=== PATIENT | female | born 1965 | race Caucasian/White ===

== ENCOUNTER 2021-01-21 21:33 | Emergency (ER) | payer MEDICARE, SELFPAY ==
--- NOTE | ~2021-01-21 | XR_ITS ---
XR chest 2V DATE: 01/21/2021 21:56 INDICATION: Shortness of breath TECHNIQUE: PA and lateral views COMPARISON: None FINDINGS: Normal heart size. No hilar or mediastinal enlargement. Bilateral hyperinflation with flattening the diaphragm, consistent with COPD. No pulmonary infiltrate or consolidation, pleural effusion or pulmonary vascular congestion or pneumothorax. Anterior cervical spine surgical fusion. IMPRESSION: COPD Reviewed, dictated and finalized at location A. IMPRESSION: COPD
--- NOTE | 2021-01-21 21:39 | ECG_ITS ---
Measurements Intervals [place] Rate: 110 P: 81 [place]: 154 QRS: 78 QRSD: 98 T: 83 QT: 319 QTc: 432 Interpretive Statements SINUS TACHYCARDIA CONSIDER ANTERIOR INFARCT, AGE INDETERMINATE BORDERLINE T WAVE ABNORMALITY- HIGH LATERAL LEADS BASELINE ARTIFACT- I, II, III, AVR, AVL, AVF, V5-V6 ABNORMAL ECG Electronically Signed On 01-22-2021 7:32:14 CDT by Richar Galaviz D.O.
[2021-01-21 21:43] VITALS: BP 145/87; PULSE 114; RESP 31; TEMP 36.8; O2SAT 99
[2021-01-21 22:05] LABS: Basophils Percent Auto 0.4 % (0.2-1.2); Eosinophils Absolute Auto 0.1 K/mm3 (0-0.3); Eosinophils Percent Auto 1.7 % (0-4.4); Hematocrit 48.1 % (37.0-47.0); Hemoglobin 16.2 g/dL (12.0-15.0); Immature Granulocyte Absolute 0.02 K/mm3 (0.00-0.031); Immature Granulocyte Percent A 0.3 % (0-0.5); Lymphocytes Percent Auto 18.3 % (18.3-44.2); Mean Corpuscular HGB Conc 33.7 g/dl (32-36); Mean Corpuscular Hemoglobin 31.5 pg (26-34); Mean Corpuscular Volume 93.6 fl (80-100); Mean Platelet Volume 9.7 fl (7.4-10.4); Monocytes Absolute Auto 0.6 K/mm3 (0.1-0.6); Monocytes Percent Auto 7.8 % (2.6-8.5); Neutrophils Absolute Auto 5.1 K/mm3 (1.3-6.7); Neutrophils Percent Auto 71.5 % (45.5-73.1); Platelet Count Result 252 k/mm3 (150-375); Red Blood Count 5.14 M/mm3 (4.2-5.4); Red Cell Distribution Width 12.2 % (11.5-14.5); White Blood Count 7.1 K/mm3 (4.5-10.0)
[2021-01-21 22:14] LABS: INR 0.9; Prothrombin Time 12.4 Seconds (11.1-14.7)
[2021-01-21 22:15] LABS: Partial Thromboplastin Time 27.4 SECONDS (22.3-36.8)
[2021-01-21 22:20] LABS: Anion Gap 9 mmol/L (8-16); Blood Urea Nitrogen 12 mg/dL (7-17); Calcium 9.5 mg/dL (8.4-10.2); Carbon Dioxide 27 mmol/L (22-30); Chloride 105 mmol/L (98-107); Estimated CRCL calculation 87 ml/min; Estimated Glomerular Filt Rate > 60; Glucose 163 mg/dL (65-105); Potassium 3.8 mmol/L (3.4-5.0); Sodium 141 mmol/L (137-145)
[2021-01-21] MEDS: IPRATROPIUM BR 0.02% INH SOLN 0.5 MG/2.5 ML VIAL INHALATION (23:14)
[2021-01-21] MEDS: ALBUTEROL SULFATE NEB 2.5 MG/0.5 ML INH 5 MG INHALATION (23:14)
[2021-01-21 23:15] VITALS: PULSE 99; RESP 24
[2021-01-21 23:21] VITALS: PULSE 97; RESP 18
[2021-01-21 23:24] VITALS: BP 126/87; PULSE 102; RESP 22; O2SAT 100
[2021-01-21] MEDS: methylPREDNISolone SOD SUCC 125 MG VIAL IV PUSH (23:28)
--- NOTE | 2021-01-21 23:49 | ED.SOB ---
HPI - SOB/Dyspnea General Chief Complaint: Shortness of Breath/Dyspnea Stated Complaint: copd exac, sob Time Seen by Provider: 01/21/21 22:54 Source: patient Mode of arrival: ambulatory Limitations: no limitations History of Present Illness HPI Narrative: 55-year-old with a history of COPD here with complaints of cough and shortness of breath for last few days. She denies any fever. Cough is nonproductive. Patient states that she has been using her inhalers with minimal relief. No history of chest pain. MD elicited complaint: shortness of breath and cough Pertinent past history: COPD Onset (ago): day(s) (1) Timing: constant Severity: moderate Exacerbating factors: nothing Relieving factors: bronchodilators Known history of: COPD Treatment prior to arrival: none Related Data Allergies Allergy/AdvReac Type Severity Reaction Status Date / Time Penicillins AdvReac Other Verified 01/21/21 21:50 Sulfa (Sulfonamide AdvReac Other Verified 01/21/21 21:50 Antibiotics) Review of Systems Review of Systems: All systems reviewed & are unremarkable except as noted in HPI and below Constitutional: Constitutional: Reports no additional constitutional complaints Eyes: Eyes: Reports no additional eye complaints Cardiovascular: Cardiovascular: Reports no additional cardiovascular complaints Respiratory: Respiratory: Reports as per HPI Gastrointestinal: Gastrointestinal: Reports no additional gastrointestinal complaints Musculoskeletal: Musculoskeletal: Reports no additional musculoskeletal complaints Neurologic: Reports system reviewed and no additional complaints, except as documented Psychiatric: Psychiatric: Reports no additional psychiatric complaints Exam Narrative: Exam Narrative: GENERAL: Well-appearing, well-nourished, and in no acute distress. HEAD: Normocephalic, atraumatic. EYES: PERRLA and EOMI. NECK: Supple. CHEST: No respiratory distress. Bilateral wheeze HEART: Regular rate and rhythm. No murmur heard. Normal peripheral pulses. ABDOMEN: Soft, nontender, nondistended, normal active bowel sounds. EXTREMITIES: Normal range of motion. No edema. SKIN: Warm, dry, no rash. NEURO: No focal deficits. Alert and oriented x3. PSYCH: Normal mood and affect. Course Course Emergency Course: Patient feeling much better and able to move air after DuoNeb. I have given IV Solu-Medrol along with that. I discussed labs, chest x-ray findings with the patient. She states that she does have inhalers at home. We will give a short course of steroids here and recommended her to follow-up with her primary doctor. Vital Signs Vital signs: Vital Signs Temperature 36.8 C 01/21/21 21:43 Pulse Rate 114 H 01/21/21 21:43 Respiratory Rate 31 H 01/21/21 21:43 Blood Pressure 145/87 H 01/21/21 21:43 Pulse Oximetry 99 01/21/21 21:43 Temperature 36.8 C 01/21/21 21:43 Pulse Rate 102 H 01/21/21 23:24 Respiratory Rate 22 H 01/21/21 23:24 Blood Pressure 126/87 01/21/21 23:24 Pulse Oximetry 100 01/21/21 23:24 MDM - SOB/Dyspnea Lab Data Result diagrams: 01/21/21 21:46 01/21/21 21:46 Labs: Lab Results 01/21/21 01/21/21 01/21/21 Range/Units 21:46 21:46 21:46 WBC 7.1 (4.5-10.0) K/mm3 RBC 5.14 (4.2-5.4) M/mm3 Hgb 16.2 H (12.0-15.0) g/dL Hct 48.1 H (37.0-47.0) % MCV 93.6 (80-100) fl MCH 31.5 (26-34) pg MCHC 33.7 (32-36) g/dl RDW 12.2 (11.5-14.5) % Plt Count 252 (150-375) k/mm3 MPV 9.7 (7.4-10.4) fl Immature Gran % (Auto) 0.3 (0-0.5) % Neut % (Auto) 71.5 (45.5-73.1) % Lymph % (Auto) 18.3 (18.3-44.2) % [place] % (Auto) 7.8 (2.6-8.5) % Eos % (Auto) 1.7 (0-4.4) % Baso % (Auto) 0.4 (0.2-1.2) % Lymph # (Auto) 1.30 (0.9-3.2) K/mm3 [place] # (Auto) 0.6 (0.1-0.6) K/mm3 Eos # (Auto) 0.1 (0-0.3) K/mm3 Baso # (Auto) 0.0 (0.0-0.1) K/mm3 Abs Immat Gran (auto) 0.02 (0.00-0.031) K/
[2021-01-22 00:18] VITALS: BP 126/78; PULSE 103; RESP 31; O2SAT 99
== END 2021-01-22 00:20 | disposition home or self-care (01) ==
PROVIDERS: Emergency Medicine; Emergency Provider Family Medicine
DX: J44.1 Chronic obstructive pulmonary disease with (acute) exacerbation (principal)
CPT/HCPCS: 36415; 71046; 80048; 85025; 85610; 85730; 93005; 94640; 96374; 99284; J2930